=== PATIENT | female | born 1945 | race Caucasian/White ===

== ENCOUNTER 2019-06-28 16:11 | Emergency (ER) | payer MEDICARE, SELFPAY ==
[2019-06-28 16:12] VITALS: BMI 42.5
[2019-06-28 16:18] VITALS: BP 176/100; PULSE 88; RESP 20; TEMP 36.6; O2SAT 98
--- NOTE | 2019-06-28 16:49 | XR_ITS ---
WS: [id number] Right knee, 3 views, 06/28/2019 Clinical Data: trauma Comparison: Right leg, 12/19/2008. Findings: The right knee arthroplasty is in good position. The components are intact. No loosening is seen. The re are no fractures or dislocations. The soft tissues are normal. XR/XR knee RT 3V* [id number] Impression: 1. Right knee arthroplasty. 2. Negative for fracture or dislocation.
--- NOTE | 2019-06-28 16:49 | XR_ITS ---
WS: [id number] Right hand, 3 views, 06/28/2019 Clinical Data: trauma Comparison: None. Findings: No fractures or dislocations are seen. The soft tissues are unremarkable. The joint spaces show oste oarthritic change at the base of the right first metacarpal along with narrowing at the first MP join t and the first IP joint. There is narrowing at the second through fifth DIP joints with a flexion de formity of the right second finger. Impression: Negative for fracture.
--- NOTE | 2019-06-28 16:49 | XR_ITS ---
WS: [id number] Left hand, 3 views, 06/28/2019 Clinical Data: trauma Comparison: None. Findings: No fractures or dislocations are seen. The epiphyses are normal. The soft tissues are unremarkable. T he joint spaces show minimal osteoarthritic change at the base of the left first metacarpal, first MP joint and first IP joint.. XR/XR hand LT min 3V* [id number] Impression: Negative for fracture.
--- NOTE | 2019-06-28 16:58 | W.ED.FALL ---
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 She has a abrasion and small laceration on the inside of her upper right lip. She had no loss of consciousness she is awake alert and oriented she is unsure of her last tetanus shot . Patient has bilateral abrasions of her hands. The heel of the left hand has significant abrasions with no laceration. There is some superficial lacerations on the right hand posterior aspect of the first digit but there is no full-thickness laceration. MD complaint: fall Onset (ago): minute(s) Fall from: standing Place fall occurred: home Loss of consciousness: None Prolonged down time: no Symptoms prior to fall: none Context: tripped/slipped Location of injury: mouth Location of injury - extremities: Right: knee and Bilateral: hand Severity: mild Associated symptoms-after fall: Reports no associated symptoms; Denies abdominal pain or chest pain Review of Systems Const: Denies: fever, chills, body aches, change in appetite, fatigue or malaise ENMT: Denies: throat pain, ear pain, nasal discharge or nasal congestion Card: Denies: chest pain, edema, shortness of breath on exertion or shortness of breath when lying down Resp: Denies: shortness of breath, productive cough or non-productive cough GI: Denies: abdominal pain, nausea, vomiting, vomiting blood, coffee grounds in vomit, diarrhea, constipation, bloating, blood in stool or black tarry stool : Denies: flank pain, difficulty urinating, painful urination, urinary frequency or urinary urgency Skin/Breast: Denies: rash or itching PFSH ED PFSH: Social History Smoking and tobacco status: never smoked Physical Exam Const: COMMON NORMALS: no apparent distress GENERAL APPEARANCE: cooperative and comfortable ORIENTATION/CONSCIOUSNESS: Yes awake, Yes oriented to person, Yes oriented to place and Yes oriented to time HENMT: COMMON NORMALS: normocephalic, head/scalp atraumatic, hearing grossly normal bilaterally, external ears normal, EAC's normal, TM's normal bilaterally, nasal mucous membranes and turbinates normal, moist oral mucous membranes and oropharynx normal HEAD & SCALP: normocephalic and atraumatic NOSE: nasal mucous membranes and turbinates normal EXTERNAL EAR: Yes external ears normal EXTERNAL AUDITORY CANAL: EAC's normal TYMPANIC MEMBRANE: TM's normal bilaterally Eye: COMMON NORMALS: PERRL, EOMs intact bilaterally, conjunctivae normal and no scleral icterus CONJUNCTIVA: Yes conjunctivae normal PUPIL: Yes PERRL Neck/C-Spine: COMMON NORMALS: full ROM, no lymphadenopathy, supple and no JVD Lymph: LYMPHATIC: no lymphadenopathy noted and no lymphedema noted Resp: COMMON NORMALS: normal respiratory effort, no retractions, no use of accessory muscles and clear to auscultation bilaterally AUSCULTATION: clear to auscultation bilaterally Cardio: COMMON NORMALS: no JVD, regular rate, regular rhythm and no murmurs RATE: regular rate RHYTHM: regular rhythm GI: COMMON NORMALS: soft to palpation and no hepatosplenomegaly AUSCULTATION: Yes normoactive bowel sounds PALPATION: Yes soft, No tender, No guarding and Yes no hepatosplenomegaly Extremity: COMMON NORMALS: normal to inspection, normal capillary refill, no clubbing, cyanosis or edema, no calf tenderness and no pedal edema Neuro: SENSORIUM/ORIENTATION: Yes oriented to person, Yes oriented to place and Yes oriented to time Skin: COMMON NORMALS: no rashes or lesions noted NARRATIVE SKIN EXAM: Abrasions to the base of the left palm superficial lacerations not requiring suturing with no gaping on the dorsum of the right hand abrasion to the right knee as well GENERAL SKIN EXAM: no rashes or lesions noted Course ED course: Reviewed findings with the patient. We will go ahead and discharge home. Follow-up with primary care doctor give tramadol for pain Vital Signs: Vital signs: Vital Signs Temperature 97.8 F 06/28/19 16:18 Pulse Rate 95 06/28/19 18:38 Respiratory Rate 16 06/28/19 18:38 Blood Pressure 145/74 06/28/19 18:38 Pulse Oximetry 96 06/28/19 18:38 Discharge Plan Discharge Patient Disposition: Home, Self-Care Clinical Impression: Fall Qualifiers: Encounter type: initial encounter Qualified Code(s): W19.XXXA - Unspecified fall, initial encounter Condition: Stable Prescriptions: New tramadol 50 mg tablet 50 mg PO Q8H PRN (Reason: pain) Qty: 10 RF: 0 No Action amlodipine 5 mg Tablet 5 mg PO DAILY RF: 0 Discharge Orders: Discharge Order (Routine); Ordered 06/28/19 Ordered By: Merrill Flores Referrals: Grayson Perez DO [Family Provider] - Discharge Diet: Advance as tolerated Discharge Activity: Resume usual activity Discharge Date/Time: 06/28/19 18:39 Coding Level of Care Code ED Delivery Table Feeder for Chg Fwd Exam Comprehensive
[2019-06-28] MEDS: tetanus-dipt-pertussis 0.5 mL SDV IM (17:40)
[2019-06-28 17:55] VITALS: BP 146/88; RESP 17
[2019-06-28] MEDS: neomycin-poly-bacitracin oint 0.9 gm Pkt 1 APPLIC TOPICAL ×2 (18:14→18:17)
[2019-06-28 18:17] VITALS: BP 164/77; PULSE 88; RESP 16; O2SAT 96
--- NOTE | 2019-06-28 18:25 | XR_ITS ---
WS: [id number] Cervical spine, 3 views, 06/29/2019 Clinical Data: FALL, NECK PAIN Comparison: Lateral Cervical spine, 09/25/2009, Cervical spine, 09/02/2009. Findings: No compression fractures are seen. There is an anterior cervical disc fusion from C4 throug h T1. There is an prosthesis inserted into the vertebral bodies C4-C7. No change in the fusion is see n. No prevertebral soft tissue swelling is noted. The disc heights have not changed. The odontoid is normal. There are clips overlying the midportion of the right clavicle unchanged. XR/XR cervical spine 3V* [id number] Impression: 1. Anterior cervical disc fusion unchanged. 2. Negative for compression fracture or displacement of the fusion.
[2019-06-28 18:38] VITALS: BP 145/74; PULSE 95; RESP 16; O2SAT 96
== END 2019-06-28 18:39 | disposition home or self-care (01) ==
PROVIDERS: Emergency Provider Family Medicine; Family Provider Electrodiagnostic Medicine
DX: S61.412A Laceration without foreign body of left hand, initial encounter (principal); S60.511A Abrasion of right hand, initial encounter; S80.211A Abrasion, right knee, initial encounter; W01.0XXA Fall on same level from slipping, tripping and stumbling without subsequent striking against object, initial encounter; Y93.K1 Activity, walking an animal; Y92.009 Unspecified place in unspecified non-institutional (private) residence as the place of occurrence of the external cause; Z97.16 Presence of artificial legs, bilateral (complete) (partial)
CPT/HCPCS: 72040; 73130; 73562; 90471; 90715; 99283

== ENCOUNTER 2019-06-29 13:12 | Outpatient (CLI) | payer MEDICARE, SELFPAY ==
--- NOTE | 2019-06-29 13:39 | XR_ITS ---
WS: [id number] Chest 2 views, 06/29/2019 Clinical Data: CHEST WALL PAIN Comparison: PA and lateral chest, 06/24/2017. Findings: No nodules, masses or effusions are seen. The heart is normal. The pulmonary vascularity is not increased. No pneumonia or pneumothorax is seen. The aortic arch and descending aorta show mild tortuosity. An anterior cervical disc fusion of the lower cervical spine is again seen. There are cli ps over the midportion of the right clavicle. XR/XR chest 2V* [id number] Impression: Atherosclerosis.
== END 2019-06-29 13:13 | disposition home or self-care (01) ==
LOC: RAD 13:21
PROVIDERS: Family Provider Electrodiagnostic Medicine; PCP Electrodiagnostic Medicine; Visit Provider Nurse Practitioner Family
DX: I70.0 Atherosclerosis of aorta (principal); R07.89 Other chest pain
CPT/HCPCS: 71046

== ENCOUNTER 2019-12-05 15:44 | Outpatient (CLI) | payer MEDICARE, SELFPAY ==
--- NOTE | 2019-12-05 15:51 | XR_ITS ---
WS: [id number] SCREENING DEXA SCAN [employer] CLINICAL INFORMATION: POST MENOPAUSAL STATUS COMPARISON: None. FINDINGS: The L1-L4 bone mineral density measures 1.324 g/cm2. This corresponds to a T score score of 1.2 and Z score of 1.8. Left femoral neck bone mineral density measures 0.975 g/cm2. This corresponds to a T score of -0.3 an d Z score of 0.5. Right femoral neck bone mineral density measures 0.934 g/cm2. This corresponds to a T score -0.6of an d Z score of 0.2. Mean femoral neck bone mineral density measures 0.954 g/cm2. This corresponds to a T score of -0.4 an d Z score of 0.4. XR/XR DEXA axial skeleton* [id number] IMPRESSION: Normal bone mineralization. Patient's FRAX calculated 10 year probability for major osteoporotic fracture i s 15.9 % and osteoporotic hip fracture is 2.8%.
== END 2019-12-05 15:45 | disposition home or self-care (01) ==
LOC: RADWPI 15:49
PROVIDERS: Family Provider Electrodiagnostic Medicine; PCP Electrodiagnostic Medicine; Visit Provider Electrodiagnostic Medicine
DX: Z78.0 Asymptomatic menopausal state (principal)
CPT/HCPCS: 77080

== ENCOUNTER → 2021-02-26 14:30 | Outpatient (BNVA) | payer MEDICARE, SELFPAY | PROVIDERS: Family Provider Electrodiagnostic Medicine; PCP Electrodiagnostic Medicine; Referring Provider Electrodiagnostic Medicine; Visit Provider Obstetrics & Gynecology | DX: R39.9 Unspecified symptoms and signs involving the genitourinary system (principal); N90.89 Other specified noninflammatory disorders of vulva and perineum | CPT/HCPCS: 81000; 87086; 88305 ==

== ENCOUNTER → 2023-01-05 17:34 | Outpatient (BNVA) | payer MEDICARE, SELFPAY | PROVIDERS: Family Provider Electrodiagnostic Medicine; PCP Electrodiagnostic Medicine; Visit Provider Emergency Medicine | DX: R05.9 Cough, unspecified (principal) | CPT/HCPCS: 87426 ==

== ENCOUNTER → 2023-11-28 10:57 | Outpatient (BNVA) | payer OTHER, SELFPAY | PROVIDERS: Family Provider Electrodiagnostic Medicine; PCP Electrodiagnostic Medicine; Referring Provider Electrodiagnostic Medicine; Visit Provider Psychiatry & Neurology Neurology | DX: R41.3 Other amnesia (principal) | CPT/HCPCS: 86780 ==

== ENCOUNTER 2023-12-02 07:47 | Outpatient (CLI) | payer MEDICARE, SELFPAY ==
[2023-12-02 09:10] LABS: Blood Urea Nitrogen 18 mg/dL (8-23)
--- NOTE | 2023-12-02 09:15 | CT_ITS ---
WS: [id number] CT HEAD TECHNIQUE: Noncontrast and contrast-enhanced CT of the head. CLINICAL INFORMATION: R41.3 - Other amnesia COMPARISON: CT 2016 DLP: 2187.[address] scans at [facility] use at least one of these dose optimization techniques: automated e xposure control; mA and/or kV adjustment per patient size (includes targeted exams where dose is matc hed to clinical indication); or iterative reconstruction. FINDINGS: No evidence intracranial hemorrhage or mass effect. Mild small vessel changes with mild parenchymal v olume loss. Vascular calcification. Paranasal sinuses and mastoid air cells are well aerated. Vascula r calcification. Normal posterior nasopharynx. No extra-axial fluid collections. No abnormal intracranial enhancement. No enhancing intracranial lesions. No other suspicious findings . CT/CT head wo/w con [id number] IMPRESSION: 1. No evidence of intracranial hemorrhage or mass effect. 2. No enhancing intracranial lesions. 3. Dense cavernous carotid calcification appears progressed compared to previo us. 4. Mild small vessel changes with mild parenchymal volume loss. This is slight ly progressed compared to previous. 5. No other acute findings.
[2023-12-02] MEDS: iohexol 350 mg/mL 500 mL Btl (per mL) IV (09:35)
== END 2023-12-02 07:48 | disposition home or self-care (01) ==
LOC: RAD 07:48
PROVIDERS: Family Provider Electrodiagnostic Medicine; PCP Electrodiagnostic Medicine; Visit Provider Psychiatry & Neurology Neurology
DX: I65.23 Occlusion and stenosis of bilateral carotid arteries (principal); R41.3 Other amnesia
CPT/HCPCS: 36415; 70470; 82542; 82565; 83735; 84520; 86592; Q9967

== ENCOUNTER → 2023-12-11 14:49 | Outpatient (BNVA) | payer MEDICARE, SELFPAY | PROVIDERS: Family Provider Electrodiagnostic Medicine; PCP Electrodiagnostic Medicine; Visit Provider Emergency Medicine | DX: J06.9 Acute upper respiratory infection, unspecified (principal) | CPT/HCPCS: 87426 ==

== ENCOUNTER 2024-01-09 14:47 | Outpatient (CLI) | payer MEDICARE, SELFPAY ==
--- NOTE | 2024-01-09 15:00 | USCV_ITS ---
Kellee Haji Age: 78 Gender: F : 1945 Exam Date: 01/09/2024 15:09 Ordering Phys: Clifton Richardson MD Technologist: R Exam Location: [facility] Indication: Stenosis Risk Factors: Previous Vascular Surgery: Right Brachial BP: / Left Brachial BP: / Right Left Velocity (cm/s) Spectral Plaque Velocity (cm/s) Spectral Plaque Syst/Diast Broadening Syst/Diast Broadening 65.60/ 5.30 Prox CCA 58.80 / 7.70 53.30/ 12.60 Mid CCA 56.40 / 14.90 61.40/ 11.70 Distal CCA 51.90 / 11.00 49.20/ 10.90 Prox ICA 35.20 / 8.10 62.80/ 14.80 Mid ICA 80.20 / 20.50 74.00/ 18.90 Distal ICA 65.20 / 17.50 75.50 ECA 80.40 1.20 ICA/CCA 1.50 Antegrade Vertebral Antegrade 24.30/ 7.10 cm/s 33.40/ 10.00 cm/s Tri Subclavian Bi 93.20 101.6 0 FINDINGS Comparison: none available. Mixture of calcified and noncalcified plaque in the bifurcations. Waveforms are normal. No significant elevation of systolic or diastolic velocities. Antegrade vertebral arteries. CONCLUSIONS Bilateral ICA stenosis less than 50%. Mild carotid atherosclerosis. Dr. Patito Herrera DO (Electronically Signed) Final Date: 09 January 2024 15:58 S
== END 2024-01-09 14:48 | disposition home or self-care (01) ==
PROVIDERS: Family Provider Electrodiagnostic Medicine; PCP Electrodiagnostic Medicine; Visit Provider Psychiatry & Neurology Neurology
DX: I65.23 Occlusion and stenosis of bilateral carotid arteries (principal)
CPT/HCPCS: 93880